=== PATIENT | female | born 1950 | race Caucasian/White ===

== ENCOUNTER 2022-02-04 11:53 | Outpatient (CLI) | payer MEDICARE | END 2022-02-04 11:54 | disposition home or self-care (01) | LOC: BICMAMMO 11:53 | PROVIDERS: ATTEND Family Medicine | DX: Z12.31 Encounter for screening mammogram for malignant neoplasm of breast (principal) | CPT/HCPCS: 77063; 77067 ==

== ENCOUNTER 2023-03-09 11:40 | Outpatient (CLI) | payer MEDICARE | END 2023-03-09 11:41 | disposition home or self-care (01) | LOC: BICMAMMO 11:40 | PROVIDERS: ATTEND Family Medicine | DX: Z12.31 Encounter for screening mammogram for malignant neoplasm of breast (principal) | CPT/HCPCS: 77063; 77067 ==

== ENCOUNTER 2024-01-15 18:27 | Inpatient (IN) | payer MEDICARE ==
[2024-01-15] MEDS ORDERED: Ondansetron PF 4 MG/2 ML Vial IVP PRN (21:02)
[2024-01-15] MEDS ORDERED: Calcium Carbonate 500 MG ChewTAB PO PRN (21:02)
[2024-01-15] MEDS ORDERED: Ipratropium/Albuterol 3 ML NEB NEB PRN (21:19)
[2024-01-15] MEDS ORDERED: Benzonatate 100 MG CAP PO PRN (21:19)
[2024-01-15 21:41] LABS: #Basophils 0.04 10x3/uL (0.0-0.2); %Basophils 0.4 % (0.0-1.0); %Eosinophils 0.5 % (0.0-10.0); %Lymphocytes 8.3 % (21.0-51.0); %Monocytes 8.8 % (0.0-10.0); %Neutrophils 81.7 % (42.0-75.0); Hematocrit 23.9 % (36.0-47.0); Hemoglobin 7.8 g/dL (12.0-16.0); Mean Corpuscular HGB CONC 32.6 g/dL (32.0-36.0); Mean Corpuscular Hemoglobin 33.8 pg (27.0-31.0); Mean Corpuscular Volume 103.5 fL (78.0-98.0); Mean Platelet Volume 9.5 fL (7.4-10.4); Platelet Count 238 10x3/uL (130-400); RBC Distribution Width 12.2 % (11.5-14.5); Red Blood Cell (RBC) Count 2.31 mill/uL (4.20-5.40)
[2024-01-15 21:55] LABS: Anion Gap 14 mmol/L (10-20); BUN (Urea Nitrogen) 12 mg/dL (9.8-20.1); Calc. Creatinine Clearance 0 mL/min (70-130); Calcium 8.5 mg/dL (7.8-10.44); Carbon Dioxide 19 mmol/L (23-31); Chloride 105 mmol/L (98-107); Estimated GFR 46; Glucose 139 mg/dL (83-110); Potassium 4.4 mmol/L (3.5-5.1); Sodium 134 mmol/L (136-145)
[2024-01-15 22:01] LABS: Troponin I Less than 0.010 ng/mL (< 0.028)
[2024-01-15] MEDS: Furosemide 40 MG (4 mL) VIAL SLOW IVP SCH (22:50)
[2024-01-16 00:02] LABS: SARS-CoV-2 E Target Negative; SARS-CoV-2 N2 Target Negative; SARS-CoV-2 NAA Rapid Test Not Detected (NotDetected); SARS-CoV-2 RdRP gene Negative
[2024-01-16 04:59] VITALS: BMI 26.6
[2024-01-16] MEDS: Furosemide 40 MG (4 mL) VIAL SLOW IVP SCH (05:08)
[2024-01-16 08:08] LABS: #Basophils 0.04 10x3/uL (0.0-0.2); %Basophils 0.4 % (0.0-1.0); %Eosinophils 2.7 % (0.0-10.0); %Monocytes 10.7 % (0.0-10.0); %Neutrophils 75.8 % (42.0-75.0); Hematocrit 25.9 % (36.0-47.0); Hemoglobin 8.8 g/dL (12.0-16.0); Mean Corpuscular Hemoglobin 34.5 pg (27.0-31.0); Mean Corpuscular Volume 101.6 fL (78.0-98.0); Mean Platelet Volume 9.7 fL (7.4-10.4); Platelet Count 260 10x3/uL (130-400); RBC Distribution Width 12.1 % (11.5-14.5); Red Blood Cell (RBC) Count 2.55 mill/uL (4.20-5.40)
[2024-01-16] MEDS: Amlodipine 5 MG TAB PO SCH (08:11)
[2024-01-16] MEDS: Aspirin 81 mg Enteric Coated Tablet PO SCH (08:12)
[2024-01-16] MEDS: Azithromycin 500 MG in Sodium Chloride 0.9% 250 ML 250 ML IVPB SCH (08:12)
[2024-01-16] MEDS: Carvedilol 25 MG TAB PO SCH (08:12)
[2024-01-16] MEDS: Ezetimibe 10 MG TAB PO SCH (08:12)
[2024-01-16] MEDS: cefTRIAXone\\ROCEPHIN 1 GM in Sodium Chloride 0.9% 100 ML IVPB SCH (08:12)
[2024-01-16] MEDS: Enoxaparin 40 MG (0.4 mL) SYRINGE SC SCH (08:13)
[2024-01-16 08:25] LABS: ALT (SGPT) 10 U/L (8-55); AST (SGOT) 18 U/L (5-34); Albumin 2.9 g/dL (3.4-4.8); Alkaline Phosphatase 63 U/L (40-110); Anion Gap 16 mmol/L (10-20); BUN (Urea Nitrogen) 11 mg/dL (9.8-20.1); Bilirubin, Total 0.5 mg/dL (0.2-1.2); Calc. Creatinine Clearance 46 mL/min (70-130); Calcium 9.1 mg/dL (7.8-10.44); Carbon Dioxide 22 mmol/L (23-31); Chloride 102 mmol/L (98-107); Estimated GFR 43; Globulin 3.9 g/dL (2.4-3.5); Glucose 104 mg/dL (83-110); Magnesium 1.7 mg/dL (1.6-2.6); Potassium 3.6 mmol/L (3.5-5.1); Protein, Total 6.8 g/dL (5.8-8.1); Sodium 136 mmol/L (136-145)
[2024-01-16] MEDS: Atorvastatin Calcium 20 MG TAB PO SCH (20:45)
[2024-01-16] MEDS: Acetaminophen 325 MG TAB PO PRN (20:45)
[2024-01-17] MEDS: Spironolactone 25 MG TAB PO SCH (16:30)
[2024-01-17] MEDS: Empagliflozin 10 MG TAB PO SCH (16:30)
[2024-01-18 05:56] LABS: Anion Gap 15 mmol/L (10-20); BUN (Urea Nitrogen) 12 mg/dL (9.8-20.1); Calc. Creatinine Clearance 53 mL/min (70-130); Calcium 9.1 mg/dL (7.8-10.44); Carbon Dioxide 27 mmol/L (23-31); Chloride 99 mmol/L (98-107); Estimated GFR 54; Glucose 86 mg/dL (83-110); Potassium 2.8 mmol/L (3.5-5.1); Sodium 138 mmol/L (136-145)
[2024-01-18] MEDS ORDERED: Electrolyte Replacement Protocol 1 EACH FS SCH (07:15)
[2024-01-18 07:57] LABS: Magnesium 1.5 mg/dL (1.6-2.6)
[2024-01-18] MEDS: Empagliflozin 10 MG TAB PO SCH (08:58)
[2024-01-18] MEDS: Spironolactone 25 MG TAB PO SCH (08:58)
[2024-01-18] MEDS: Potassium Chloride 20 MEQ TAB PO SCH (08:58)
[2024-01-18] MEDS: Magnesium 2 GM/50 ML(in water) 2 GM in Premix 1 BAG IVPB SCH (09:04)
[2024-01-19 05:44] LABS: Anion Gap 16 mmol/L (10-20); BUN (Urea Nitrogen) 14 mg/dL (9.8-20.1); Calc. Creatinine Clearance 46 mL/min (70-130); Calcium 9.1 mg/dL (7.8-10.44); Carbon Dioxide 28 mmol/L (23-31); Chloride 97 mmol/L (98-107); Estimated GFR 45; Glucose 101 mg/dL (83-110); Potassium 3.4 mmol/L (3.5-5.1); Sodium 138 mmol/L (136-145)
[2024-01-19 08:46] VITALS: BP 113/76; TEMP 99.2
[2024-01-19] MEDS: Senokot S 8.6-50 MG TAB PO PRN (08:52)
[2024-01-19] MEDS ORDERED: Electrolyte Replacement Protocol FS PRN (10:45)
[2024-01-19] MEDS: Potassium Chloride 20 MEQ TAB PO SCH (10:50)
== END 2024-01-19 10:50 | disposition home or self-care (01) | DRG 193 ==
LOC: IMCU/EMU 20:37 → SURG A 01-16 13:28
PROVIDERS: ADMIT Internal Medicine; ATTEND Family Medicine
DX: J18.9 Pneumonia, unspecified organism (principal); I50.23 Acute on chronic systolic (congestive) heart failure; J96.01 Acute respiratory failure with hypoxia; I13.0 Hypertensive heart and chronic kidney disease with heart failure and stage 1 through stage 4 chronic kidney disease, or unspecified chronic kidney disease; E87.20 Acidosis, unspecified; E87.1 Hypo-osmolality and hyponatremia; I42.9 Cardiomyopathy, unspecified; E78.5 Hyperlipidemia, unspecified; N18.30 Chronic kidney disease, stage 3 unspecified; D63.1 Anemia in chronic kidney disease; Z90.710 Acquired absence of both cervix and uterus; Z79.82 Long term (current) use of aspirin; Z79.899 Other long term (current) drug therapy
CPT/HCPCS: 36415; 71250; 80048; 80053; 83735; 83880; 84145; 85025; 93005; 93010; 93306; 93970; 94640; 94660; 94760; 97139; J0456; J0696; J1650; J1940; J3475; J7050; J7620; U0002